=== PATIENT | female | born 1970 | race African-American/Black ===

== ENCOUNTER 2016-10-23 15:13 | Emergency (ER) | payer OTHER, MEDICAID ==
[~2016-10-23] VITALS: Ht 170.2 cm; Wt 95.3 kg
[2016-10-23 15:13] VITALS: BP_SYST 156
--- NOTE | 2016-10-23 15:13 | NUR ---
Patient to ER bed 03 to gown for evaluation. Side rails up. Report given to George.
--- NOTE | 2016-10-23 15:13 | NUR ---
ER at bedside examining patient.
[2016-10-23] MEDS ORDERED: DEXAMETHASONE SOD PHOSPHATE 10 MG/ML VIAL IVP ONE (15:30)
[2016-10-23] MEDS ORDERED: KETOROLAC TROMETHAMINE 30 MG VIAL IVP ONE (15:30)
[2016-10-23] MEDS ORDERED: NS 500 ML IV ONE (15:30)
[2016-10-23] MEDS ORDERED: PROCHLORPERAZINE EDISYLATE 10 MG/2 ML VIAL IVP ONE (15:30)
--- NOTE | 2016-10-23 16:45 | NUR ---
2 IV attempts unsuccessful, MD notified pt tolerated well
--- NOTE | 2016-10-23 17:00 | NUR ---
Patient refused medications.
[2016-10-23] MEDS: DEXAMETHASONE SOD PHOSPHATE 10 MG/ML VIAL IM ONE ×2 (17:01→17:51)
[2016-10-23] MEDS: KETOROLAC TROMETHAMINE 60 MG/2 ML VIAL IM ONE ×2 (17:02→17:51)
[2016-10-23] MEDS: PROCHLORPERAZINE EDISYLATE 10 MG/2 ML VIAL IM ONE ×2 (17:03→17:50)
[2016-10-23 17:35] VITALS: BP_SYST 156
--- NOTE | 2016-10-23 17:35 | NUR ---
Patient given written and verbal discharge instructions and verbalizes understanding. ER MD discussed with patient the results and treatment provided. Given copies of tests performed in ER. Patient in stable condition. Opportunity for questions provided and answered.
== END 2016-10-23 17:35 | disposition home or self-care (01) ==
LOC: SED 15:13
DX: R51 Headache (principal); Z88.5 Allergy status to narcotic agent
CPT/HCPCS: 70450; 99284; J0780; J1100; J1885 ×2; J7030